=== PATIENT | female | born 1940 | race Caucasian/White ===

== ENCOUNTER 2019-04-10 09:23 | Emergency (ER) | payer MEDICARE, BC ==
[~2019-04-10] VITALS: Ht 154.9 cm; Wt 74.8 kg
[~2019-04-10 09:23] MED LIST: ACID REDUCER C1 EACH PO; ACYC200 PO; ACYC400 PO; ALLO300; ALLO300 PO; ASPI81EC; Amitiza8 MCG PO; B-121000 MC2 PO; BASAGLAR K100 UNIT/1 SC; CALCAVITDA; CLON.1 PO; CLON.2 PO; CODACE30 PO; CYAN1000 PO; Catapres0.2 MG PO; Cleocin HCl150 MG PO; Colace250 MG PO; Diflucan200 MG PO; EPIN.3I IM; ESOM20; FISH1000; FOLI400; FURO40 PO; GAVILAX17 GM PO; GLIP10ER; HYDR1TAB94 PO; Humalog Mi100 UNIT/4 SC; Humalog100 UNIT/1 SC; INSULANPEN SC; LIDO5TP TOP; LOSA25 PO; LOSARTAN POTASS25 MG PO; Lisinopril2.5 MG PO; MAGOXI400 PO; MECL25 PO; META800 PO; METF500; MULVITMINF; Mag-Al Liquid30 ML PO; NYST100000; NYST100000 MT; NYST100000 PO; NYST100SU PO; OMEP40CA12 PO; ONDA4 PO; ONDA4ODT MM; POLYETHYLENE G255 GM PO; PROM25 PO; Percocet 5-3251 EACH PO; Prilosec Otc20 MG PO; ROXICODONE5 MG PO; SACC250C PO; STOOL SOFTENER1 EAC2 PO; TOCO400; TRAM50 PO; TRIHYD253B; TRULICITY1.5 MG/0.5 SC; VERA240ER; Vitamin D2000 UNIT PO; ZOLP5 PO
[2019-04-10 10:07] LABS: BASOPHILS ABSOLUTE AUTO 0.06 K/mm3 (0.00-0.23); BASOPHILS PERCENT AUTO 1 % (0-2); EOSINOPHILS ABSOLUTE AUTO 0.29 K/mm3 (0.00-0.68); EOSINOPHILS PERCENT AUTO 3 % (0-6); IMMATURE GRAN ABSOLUTE AUTO 0.04 K/mm3 (0.00-0.10); IMMATURE GRAN PERCENT AUTO 0 % (0-1); LYMPHOCYTES ABSOLUTE AUTO 2.84 K/mm3 (0.84-5.20); LYMPHOCYTES PERCENT AUTO 30 % (21-46); MONOCYTES ABSOLUTE AUTO 0.67 K/mm3 (0.16-1.47); MONOCYTES PERCENT AUTO 7 % (4-13); Mean Corpuscular HGB 32.5 pg (26.0-34.0); Mean Corpuscular HGB Conc 33.3 g/dL (31.5-36.5); Mean Corpuscular Volume 97 fL (80-100); Mean Platelet Volume 10.6 fL (9.1-12.4); NEUTROPHILS PERCENT AUTO 59 % (41-73); Platelet Count 256 K/mm3 (150-400); RDW Coefficient Variation 12.6 % (11.7-14.2); RDW Standard Deviation 45.4 fL (35.1-46.3); Red Blood Cell Count 4.31 M/mm3 (3.80-5.20)
[2019-04-10 10:30] LABS: Alanine Aminotransfer (ALT/SGP 25 U/L (12-78); Albumin, Blood 3.5 g/dL (3.4-5.0); Albumin/Globulin Ratio 0.9 (0.8-1.8); Alk Phos 99 U/L (50-136); Anion Gap 12 mmol/L (6-16); Aspartate Aminotrans (AST/SGOT 17 U/L (12-37); Bilirubin, Total 0.8 mg/dL (0.1-1.0); Blood Urea Nitrogen 44 mg/dL (8-24); Bun/Creatinine Ratio 30.8 (12.0-20.0); CO2, Blood 23 mmol/L (21-32); Calcium, Blood 10.4 mg/dL (8.5-10.1); Chloride, Blood 100 mmol/L (98-108); Creatinine, Blood 1.43 mg/dL (0.40-1.00); Globulin, Blood 3.9 g/dL (2.2-4.0); Glomerular Filtration Rate 38 (60-); Glucose, Blood 298 mg/dL (70-99); Potassium, Blood 4.2 mmol/L (3.5-5.5); Sodium, Blood 135 mmol/L (136-145); Total Protein, Blood 7.4 g/dL (6.4-8.2)
[2019-04-10 10:32] LABS: Troponin I <0.015 ng/mL (0.000-0.040)
[2019-04-10 10:40] LABS: Source, Urine Catheter
[2019-04-10 10:53] LABS: Bilirubin, Urine Neg (Neg); Blood, Urine Neg (Neg); Glucose Qualitative, Urine 4+ (Neg); Ketones, Urine 3+ (Neg); Leukocyte Esterase, Urine Neg (Neg); Nitrite, Urine Neg (Neg); Protein, Urine 2+ (Neg); Urobilinogen, Urine NORM (Normal)
[2019-04-10 10:59] LABS: Appearance, Urine Clear (Clear); Color, Urine Yellow (P-Yellow)
[2019-04-10 11:00] LABS: Bacteria Rare /hpf; Red Blood Cells, Urine 0-2 /hpf (0-2); Squamous Epithelial Cells Few /hpf (Few); White Blood Cells, Urine 0-2 /hpf (0-5)
[2019-04-10] MEDS ORDERED: Aspir 8181 MG PO (11:17)
[2019-04-10] MEDS ORDERED: OMEP20ER PO (11:21)
== END 2019-04-10 14:56 | disposition home or self-care (01) ==
LOC: ER 09:23
PROVIDERS: Emergency Medicine
DX: E11.65 Type 2 diabetes mellitus with hyperglycemia (principal); R29.6 Repeated falls; R53.1 Weakness; R53.81 Other malaise; I10 Essential (primary) hypertension; Z88.0 Allergy status to penicillin; Z88.2 Allergy status to sulfonamides; Z88.7 Allergy status to serum and vaccine; Z88.5 Allergy status to narcotic agent; Z88.8 Allergy status to other drugs, medicaments and biological substances; Z79.899 Other long term (current) drug therapy; Z79.4 Long term (current) use of insulin; Z79.82 Long term (current) use of aspirin
CPT/HCPCS: 29505; 70450; 71046; 72125; 80053; 81001; 84484; 85025; 93005; 93010; 96360-59; 96361-59; 99285-25; J1815; J7120; P9612

== ENCOUNTER 2019-04-13 11:06 | Emergency (ER) | payer MEDICARE, BC ==
[~2019-04-13] VITALS: Ht 154.9 cm; Wt 76.2 kg
[~2019-04-13 11:06] MED LIST changes: +Aspir 8181 MG PO; +OMEP20ER PO
[2019-04-13 12:31] LABS: BASOPHILS ABSOLUTE AUTO 0.07 K/mm3 (0.00-0.23); BASOPHILS PERCENT AUTO 1 % (0-2); EOSINOPHILS ABSOLUTE AUTO 0.22 K/mm3 (0.00-0.68); EOSINOPHILS PERCENT AUTO 2 % (0-6); Hematocrit 42.4 % (33.0-51.0); Hemoglobin 14.2 g/dL (11.5-16.0); IMMATURE GRAN ABSOLUTE AUTO 0.06 K/mm3 (0.00-0.10); IMMATURE GRAN PERCENT AUTO 1 % (0-1); LYMPHOCYTES ABSOLUTE AUTO 2.24 K/mm3 (0.84-5.20); LYMPHOCYTES PERCENT AUTO 20 % (21-46); MONOCYTES ABSOLUTE AUTO 0.92 K/mm3 (0.16-1.47); MONOCYTES PERCENT AUTO 8 % (4-13); Mean Corpuscular HGB 33.6 pg (26.0-34.0); Mean Corpuscular HGB Conc 33.5 g/dL (31.5-36.5); Mean Platelet Volume 11.4 fL (9.1-12.4); NEUTROPHILS ABSOLUTE AUTO 7.67 K/mm3 (1.96-9.15); NEUTROPHILS PERCENT AUTO 69 % (41-73); Platelet Count 228 K/mm3 (150-400); RDW Coefficient Variation 13.1 % (11.7-14.2); RDW Standard Deviation 47.8 fL (35.1-46.3); Red Blood Cell Count 4.23 M/mm3 (3.80-5.20); White Blood Cell Count 11.18 K/mm3 (4.00-11.30)
[2019-04-13 12:36] LABS: Mean Corpuscular Volume 100 fL (80-100)
[2019-04-13 13:39] LABS: Albumin, Blood 3.3 g/dL (3.4-5.0); Albumin/Globulin Ratio 0.9 (0.8-1.8); Bilirubin, Total 0.7 mg/dL (0.1-1.0); Bun/Creatinine Ratio 31.5 (12.0-20.0); Calcium, Blood 10.4 mg/dL (8.5-10.1); Creatinine, Blood 1.46 mg/dL (0.40-1.00); Globulin, Blood 3.7 g/dL (2.2-4.0); Potassium, Blood 4.8 mmol/L (3.5-5.5)
[2019-04-13 14:09] LABS: Source, Urine Clean Catch
[2019-04-13 14:31] LABS: Bilirubin, Urine Neg (Neg); Blood, Urine Neg (Neg); Glucose Qualitative, Urine 4+ (Neg); Ketones, Urine 4+ (Neg); Leukocyte Esterase, Urine Neg (Neg); Nitrite, Urine Neg (Neg); Protein, Urine 1+ (Neg); Urobilinogen, Urine NORM (Normal)
[2019-04-13 14:42] LABS: Appearance, Urine Clear (Clear); Color, Urine Yellow (P-Yellow)
== END 2019-04-13 15:50 | disposition home or self-care (01) ==
LOC: ER 11:06
PROVIDERS: Emergency Medicine
DX: E11.22 Type 2 diabetes mellitus with diabetic chronic kidney disease (principal); I12.9 Hypertensive chronic kidney disease with stage 1 through stage 4 chronic kidney disease, or unspecified chronic kidney disease; E11.65 Type 2 diabetes mellitus with hyperglycemia; N18.3 Chronic kidney disease, stage 3 (moderate); R53.1 Weakness; E66.9 Obesity, unspecified; Z68.31 Body mass index [BMI] 31.0-31.9, adult; Z88.2 Allergy status to sulfonamides; Z88.8 Allergy status to other drugs, medicaments and biological substances; Z88.0 Allergy status to penicillin; Z88.5 Allergy status to narcotic agent; Z79.899 Other long term (current) drug therapy; Z79.82 Long term (current) use of aspirin; Z79.4 Long term (current) use of insulin
CPT/HCPCS: 36415; 51701; 71046; 80053; 82947; 85025; 99285-25; J1815

== ENCOUNTER 2019-04-23 16:09 | Inpatient (IN) | payer MEDICARE, BC ==
[~2019-04-23] VITALS: Ht 154.9 cm; Wt 72.6 kg
[2019-04-23 16:53] LABS: BASOPHILS ABSOLUTE AUTO 0.09 K/mm3 (0.00-0.23); BASOPHILS PERCENT AUTO 1 % (0-2); EOSINOPHILS ABSOLUTE AUTO 0.06 K/mm3 (0.00-0.68); EOSINOPHILS PERCENT AUTO 0 % (0-6); Hematocrit 45.6 % (33.0-51.0); Hemoglobin 14.7 g/dL (11.5-16.0); IMMATURE GRAN PERCENT AUTO 1 % (0-1); LYMPHOCYTES ABSOLUTE AUTO 1.89 K/mm3 (0.84-5.20); LYMPHOCYTES PERCENT AUTO 12 % (21-46); MONOCYTES ABSOLUTE AUTO 0.98 K/mm3 (0.16-1.47); MONOCYTES PERCENT AUTO 6 % (4-13); Mean Corpuscular HGB 32.2 pg (26.0-34.0); Mean Corpuscular HGB Conc 32.2 g/dL (31.5-36.5); Mean Corpuscular Volume 100 fL (80-100); NEUTROPHILS ABSOLUTE AUTO 13.29 K/mm3 (1.96-9.15); NEUTROPHILS PERCENT AUTO 81 % (41-73); RDW Coefficient Variation 12.8 % (11.7-14.2); RDW Standard Deviation 46.5 fL (35.1-46.3); Red Blood Cell Count 4.57 M/mm3 (3.80-5.20); White Blood Cell Count 16.41 K/mm3 (4.00-11.30)
[2019-04-23 16:57] LABS: International Normalized Ratio 0.99; Prothrombin Time Results 10.5 Sec (9.7-11.5)
[2019-04-23 17:10] LABS: Albumin, Blood 3.2 g/dL (3.4-5.0); Albumin/Globulin Ratio 0.9 (0.8-1.8); Bilirubin, Total 0.7 mg/dL (0.1-1.0); Bun/Creatinine Ratio 31.1 (12.0-20.0); Calcium, Blood 10.3 mg/dL (8.5-10.1); Creatinine, Blood 1.51 mg/dL (0.40-1.00); Globulin, Blood 3.7 g/dL (2.2-4.0); Potassium, Blood 4.8 mmol/L (3.5-5.5); Total Protein, Blood 6.9 g/dL (6.4-8.2)
[2019-04-23 17:17] LABS: Mean Platelet Volume 11.5 fL (9.1-12.4); Platelet Count 247 K/mm3 (150-400)
[2019-04-23 17:20] LABS: Source, Urine Catheter
[2019-04-23 17:26] LABS: Bilirubin, Urine Neg (Neg); Blood, Urine Neg (Neg); Glucose Qualitative, Urine 4+ (Neg); Ketones, Urine 3+ (Neg); Leukocyte Esterase, Urine 1+ (Neg); Nitrite, Urine Neg (Neg); Protein, Urine 2+ (Neg); Specific Gravity, Urine 1.025 (1.003-1.022); Urobilinogen, Urine NORM (Normal)
[2019-04-23 17:48] LABS: Appearance, Urine Cloudy (Clear); Color, Urine Yellow (P-Yellow)
[2019-04-23 17:51] LABS: Amorphous Heavy ({null, 0-Heavy}); Bacteria Many /hpf; Red Blood Cells, Urine Not Seen /hpf (0-2)
[2019-04-23 17:53] LABS: Squamous Epithelial Cells Rare /hpf (Few)
[2019-04-24 06:34] LABS: BASOPHILS ABSOLUTE AUTO 0.08 K/mm3 (0.00-0.23); BASOPHILS PERCENT AUTO 1 % (0-2); EOSINOPHILS ABSOLUTE AUTO 0.04 K/mm3 (0.00-0.68); EOSINOPHILS PERCENT AUTO 0 % (0-6); Hematocrit 40.3 % (33.0-51.0); Hemoglobin 13.5 g/dL (11.5-16.0); IMMATURE GRAN ABSOLUTE AUTO 0.04 K/mm3 (0.00-0.10); IMMATURE GRAN PERCENT AUTO 0 % (0-1); LYMPHOCYTES ABSOLUTE AUTO 2.32 K/mm3 (0.84-5.20); LYMPHOCYTES PERCENT AUTO 18 % (21-46); MONOCYTES ABSOLUTE AUTO 1.03 K/mm3 (0.16-1.47); MONOCYTES PERCENT AUTO 8 % (4-13); Mean Corpuscular HGB 32.7 pg (26.0-34.0); Mean Corpuscular HGB Conc 33.5 g/dL (31.5-36.5); Mean Corpuscular Volume 98 fL (80-100); Mean Platelet Volume 10.9 fL (9.1-12.4); NEUTROPHILS ABSOLUTE AUTO 9.12 K/mm3 (1.96-9.15); NEUTROPHILS PERCENT AUTO 72 % (41-73); Platelet Count 263 K/mm3 (150-400); RDW Coefficient Variation 12.6 % (11.7-14.2); RDW Standard Deviation 45.2 fL (35.1-46.3); Red Blood Cell Count 4.13 M/mm3 (3.80-5.20); White Blood Cell Count 12.63 K/mm3 (4.00-11.30)
[2019-04-24 06:59] LABS: Anion Gap 8 mmol/L (6-16); Blood Urea Nitrogen 45 mg/dL (8-24); Bun/Creatinine Ratio 31.7 (12.0-20.0); CHOL/HDL RATIO 4.4; CO2, Blood 26 mmol/L (21-32); Calcium, Blood 10.2 mg/dL (8.5-10.1); Chloride, Blood 109 mmol/L (98-108); Cholesterol 201 mg/dL (50-200); Creatinine, Blood 1.42 mg/dL (0.40-1.00); Glomerular Filtration Rate 38 (60-); Glucose, Blood 225 mg/dL (70-99); HDL Cholesterol 46 mg/dL (>39); LDL/HDL RATIO 2.9; Low Density Lipoprotein Chol 132 mg/dL (0-110); Potassium, Blood 3.7 mmol/L (3.5-5.5); Sodium, Blood 143 mmol/L (136-145); Triglycerides 116 mg/dL (30-160); Very Low Density Lipoprot Chol 23 mg/dL (6-32)
--- NOTE | 2019-04-24 12:13 | NUR ---
echocardiogram completed
--- NOTE | 2019-04-24 17:50 | NUR ---
PT ARRIVED TO THE UNIT VIA GURNEY WITH AT BEDSIDE. PT EXPRESSED FEELING VERY WEAK COMPARED TO HER BASELINE. PT IS EXPERIENCING DIFFICULTY MOVING AND SLOWED SPEECH. PT IS INTERMITTENTLY CONFUSED. PT TO IMAGING FOR MRI. SPEECH THERAPY EVALUATED. PT IS ON PUREE DIET AND HONEY THICK LIQUID. OT WORKED WITH PT AND REPORTED THAT PT HAD A VERY DIFFICULT TIME SITTING AT THE EDGE OF THE BED.
--- NOTE | 2019-04-25 00:34 | NUR ---
BRADYCARDIA CALL FROM PCU SWITCHBOARD OPERATOR SUPERVISOR ELISHA GEORGES AT 0 THAT PT HR WENT FROM THE HIGH 50'S TO UPPER 40'S. PT HR WAS 48. PT REMAINED BRADYCARDIC BETWEEN [phone] WENT INTO THE ROOM TO CHECK ON PT AND SHE WAS RESTING IN BED WITH HER EYES CLOSED AND APPEARED TO BE SLEEPING. SHE RESPONDED TO ME WHEN I CALLED HER NAME. A/OX3 AND ASYMPTOMATIC. VITALS OBTAINED AND WERE STABLE. NEURO CHECK PERFORMED WITH NO ACUTE CHANGES. 0031 PT HR BACK UP TO 56. SUPERVISOR BOILER REPAIR MADE AWARE. WILL CONTINUE TO MONITOR.
--- NOTE | 2019-04-25 04:34 | NUR ---
SHIFT SUMMARY PT HAS RESTED T/O SHIFT. SHE DENIES PAIN, SHE IS A/OX4. WEAKNESS, USES BED MERCADO, AND IS CONTINENT. SWALLOWING PRECAUTIONS MAINTAIED. SHE TOLERATED THICKED LIQUIDS AND PILLS CRUSHED IN APPLESAUCE. UNEVENTFUL NIGHT. BED IN LOWEST POSITION, CALL LIGHT WITHIN REACH. WILL CONTINUE TO MONITOR AND REPORT TO ONCOMING RN.
[2019-04-25 05:35] LABS: BASOPHILS ABSOLUTE AUTO 0.06 K/mm3 (0.00-0.23); BASOPHILS PERCENT AUTO 1 % (0-2); EOSINOPHILS ABSOLUTE AUTO 0.18 K/mm3 (0.00-0.68); EOSINOPHILS PERCENT AUTO 2 % (0-6); Hematocrit 38.3 % (33.0-51.0); Hemoglobin 12.5 g/dL (11.5-16.0); IMMATURE GRAN ABSOLUTE AUTO 0.03 K/mm3 (0.00-0.10); IMMATURE GRAN PERCENT AUTO 0 % (0-1); LYMPHOCYTES ABSOLUTE AUTO 2.16 K/mm3 (0.84-5.20); LYMPHOCYTES PERCENT AUTO 27 % (21-46); MONOCYTES ABSOLUTE AUTO 0.84 K/mm3 (0.16-1.47); MONOCYTES PERCENT AUTO 10 % (4-13); Mean Corpuscular HGB 31.7 pg (26.0-34.0); Mean Corpuscular HGB Conc 32.6 g/dL (31.5-36.5); Mean Corpuscular Volume 97 fL (80-100); Mean Platelet Volume 10.7 fL (9.1-12.4); NEUTROPHILS ABSOLUTE AUTO 4.84 K/mm3 (1.96-9.15); NEUTROPHILS PERCENT AUTO 60 % (41-73); Platelet Count 243 K/mm3 (150-400); RDW Coefficient Variation 12.9 % (11.7-14.2); Red Blood Cell Count 3.94 M/mm3 (3.80-5.20); White Blood Cell Count 8.11 K/mm3 (4.00-11.30)
[2019-04-25 06:06] LABS: Albumin, Blood 2.9 g/dL (3.4-5.0); Anion Gap 7 mmol/L (6-16); Blood Urea Nitrogen 42 mg/dL (8-24); Bun/Creatinine Ratio 33.9 (12.0-20.0); CO2, Blood 27 mmol/L (21-32); Calcium, Blood 10.1 mg/dL (8.5-10.1); Chloride, Blood 109 mmol/L (98-108); Creatinine, Blood 1.24 mg/dL (0.40-1.00); Glomerular Filtration Rate 45 (60-); Glucose, Blood 125 mg/dL (70-99); Phosphorus, Blood 1.6 mg/dL (2.5-4.9); Potassium, Blood 3.5 mmol/L (3.5-5.5); Sodium, Blood 143 mmol/L (136-145)
--- NOTE | 2019-04-25 09:15 | NUR ---
PT REQUESTED TO ATTEMPT TO TAKE PILLS WHOLE IN [place]. PT WAS ABLE TO SWALLOW PILLS WHOLE WITHOUT ANY DIFFICULTY.
[2019-04-25] MEDS ORDERED: TYLENOL W CODEINE PO (10:30)
--- NOTE | 2019-04-25 12:58 | NUR ---
PT IS VERY SLEEPY THIS AFTERNOON. SHE STATED THAT SHE DID NOT SLEEP WELL. SHE IS SLOW TO RESPOND. SHE EXPRESSED THAT HER CHEECK WAS BOTHERING HER AND ASKED FOR SOME TYLENOL. PT PROMPTLY FELL ASLEEP, HELD MEDICATION. WHEN LUNCH ARRIVED PT STATED THAT SHE WAS NOT HUNGRY AND KEPT DRIFTING BACK TO SLEEP, HELD AFTERNOON MEDICATIONS AND UPDATED DR. NOTED TO HAVE INCREASED RIGHT SIDED WEAKNESS AND DISCUSSED WITH DR. MARTINEZ. NO NEW ORDERS AT THIS TIME, WILL CONTINUE TO MONITOR.
--- NOTE | 2019-04-25 16:57 | NUR ---
PT SLEEPING FREQUENTLY THIS SHIFT. SHE STATED THAT SHE DID NOT SLEEP WELL LAST NIGHT. PT HAS LITTLE APPETITE AND DID NOT DRINK MUCH THIS SHIFT, A FEW SIPS OF THICKEND ORANGE JUICE. PT STATED THAT SHE HAS A HISTORY OF TMJ AND HER JAW HAS BEEN HURTING A LOT TODAY. PROVIDED TYLENOL PER MAR AND APPLIED HEAT. PT'S AT BEDSIDE MOST OF THIS SHIFT.
--- NOTE | 2019-04-26 05:00 | NUR ---
SHIFT SUMMARY PT CONTINUES TO HAVE RIGHT SIDED WEAKNESS. PT HAS POOR APPETITE AND HAS BEEN EATING VERY LITTLE. DR. MARTINEZ WAS NOTIFIED OF THIS BY DAYSHIFT RN. GUILLE HELD FOR THIS REASON. PT LETHARGIC, BUT EASILY AWAKES TO VERAL STIMULI. NEURO CHECKS HAVE REMAINED UNCHANGED FROM PRIOR ASSESSMENTS. PT BRADYCARDIC AT NIGHT WHEN SLEEPING 48-52 PER RAG CUTTING MACHINE OPERATOR. PT HAS BEEN ASYMPTOMATIC AND VITALS STABLE. PT IS NSR DURING THE DAY AND WITH ACTIVTY. PT A/OX4, CALLS APPROPRIATELY AND MAKES NEEDS KNOWN. WILL CONTINUE TO MONITOR AND REPORT TO ONCOMING RN.
--- NOTE | 2019-04-26 07:22 | NUR ---
ASSUMED CARE OF PT- BEDSIDE REPORT COMPLETED WITH NIGHT AMILCAR RIVERA. PT ALERT AND ORIENTED TO SELF, EVENT AND SURROUNDINGS. PT CURRENTLY SITTING UP IN BED. SPEECH IS SLURRED WITH A NOTABLE LEFT SIDED DROOP. PER PT SPEECH IS MUCH BETTER THAN IT WAS WHEN SHE WAS FIRST ADMITTED. PT HAS BEEN SEEN BY THERAPY BUT THEY WERE UNABLE TO GET HER OUT OF BED YET, PT TO BE SEEN AGAIN TODAY WITH ATTEMPT TO AMBULATE.
--- NOTE | 2019-04-26 07:43 | NUR ---
PT WAS SEEN BY [facility]UP[facility]ERAPY WHERE SHE SAT AT THE EOB. RECIEVED A CALL FROM TELE THAT THE PT HR HAD GONE FROM NSR IN THE 50'S TO NSR IN THE 100'S. ASSISTED PT BACK TO BED LAYING FLAT AND HR RETURNED TO NSR AT 62 WITH PVC'S.
--- NOTE | 2019-04-26 11:25 | NUR ---
CALLED DR PORTER RENE IS AWARE OF THE PT INCREASED HR WITH WORKING WITH OT TODAY. PT STILL OK FOR DISCHARGE.
[2019-04-26] MEDS ORDERED: ATOR40TA PO (11:46)
[2019-04-26] MEDS ORDERED: ASPI81CH PO (11:46)
[2019-04-26] MEDS ORDERED: CLOP75 PO (11:46)
[2019-04-26] MEDS ORDERED: LEVOFLOXACIN750 MG PO (11:47)
--- NOTE | 2019-04-26 11:52 | NUR ---
SPOKE TO DISCHARGE PLANNING PLAN IS FOR PT TO DISCHARGE TO [facility] AT 1230.
--- NOTE | 2019-04-26 14:47 | NUR ---
DISCHARGE NOTE- PT WAS DISCHARGED TO [facility] SPOKE TO STAFF AND GAVE VERBAL REPORT. NO FURTHER QUESTIONS AT THAT TIME, IV DC'D PRIOR TO DISCHARGE, TELE DC'D PRIOR TO DISCHARGE AND SENT BACK TO PCU VIA THE TUBE SYSTEM.
== END 2019-04-26 12:44 | DRG 65 ==
LOC: ER 16:09 → ERHOLD 21:13 → MEDS 04-24 12:19 → ENPENDDIS 04-26 11:45 → MEDS 04-26 12:44
PROVIDERS: Emergency Medicine; Family Medicine; ADMIT Internal Medicine
DX: I63.9 Cerebral infarction, unspecified (principal); N39.0 Urinary tract infection, site not specified; I12.9 Hypertensive chronic kidney disease with stage 1 through stage 4 chronic kidney disease, or unspecified chronic kidney disease; N18.3 Chronic kidney disease, stage 3 (moderate); E11.22 Type 2 diabetes mellitus with diabetic chronic kidney disease; M79.7 Fibromyalgia; Z88.6 Allergy status to analgesic agent; Z88.5 Allergy status to narcotic agent; Z88.0 Allergy status to penicillin; Z88.2 Allergy status to sulfonamides; Z88.7 Allergy status to serum and vaccine; Z88.8 Allergy status to other drugs, medicaments and biological substances; Z79.4 Long term (current) use of insulin; Z79.899 Other long term (current) drug therapy
CPT/HCPCS: 36415; 51701; 70450; 70496; 70498; 70551; 80048; 80053; 80061; 80069; 81001; 82947; 83036; 85025; 85610; 87086; 92610; 93005; 93010; 93306; 96360-59; 96361-59; 97162; 97166; 97530; 97535; 99285-25; A9270; J1650; J1815; J1956; J7030; Q9967

== ENCOUNTER 2019-07-20 14:16 | Emergency (ER) | payer MEDICARE, BC ==
[~2019-07-20] VITALS: Ht 154.9 cm; Wt 74.8 kg
[~2019-07-20 14:16] MED LIST changes: +ASPI81CH PO; +ATOR40TA PO; +CLOP75 PO; +LEVOFLOXACIN750 MG PO; +TYLENOL W CODEINE PO
[2019-07-20 14:57] LABS: BASOPHILS ABSOLUTE AUTO 0.06 K/mm3 (0.00-0.23); BASOPHILS PERCENT AUTO 1 % (0-2); EOSINOPHILS ABSOLUTE AUTO 0.18 K/mm3 (0.00-0.68); EOSINOPHILS PERCENT AUTO 2 % (0-6); Hemoglobin 13.1 g/dL (11.5-16.0); IMMATURE GRAN ABSOLUTE AUTO 0.06 K/mm3 (0.00-0.10); IMMATURE GRAN PERCENT AUTO 1 % (0-1); LYMPHOCYTES ABSOLUTE AUTO 1.85 K/mm3 (0.84-5.20); LYMPHOCYTES PERCENT AUTO 15 % (21-46); MONOCYTES ABSOLUTE AUTO 0.68 K/mm3 (0.16-1.47); MONOCYTES PERCENT AUTO 6 % (4-13); Mean Corpuscular HGB 32.6 pg (26.0-34.0); Mean Corpuscular HGB Conc 33.6 g/dL (31.5-36.5); Mean Corpuscular Volume 97 fL (80-100); NEUTROPHILS ABSOLUTE AUTO 9.39 K/mm3 (1.96-9.15); NEUTROPHILS PERCENT AUTO 77 % (41-73); Platelet Count 283 K/mm3 (150-400); RDW Coefficient Variation 12.6 % (11.7-14.2); RDW Standard Deviation 44.9 fL (35.1-46.3); Red Blood Cell Count 4.02 M/mm3 (3.80-5.20); White Blood Cell Count 12.22 K/mm3 (4.00-11.30)
[2019-07-20 15:23] LABS: Albumin, Blood 3.3 g/dL (3.4-5.0); Albumin/Globulin Ratio 0.8 (0.8-1.8); Bilirubin, Total 0.7 mg/dL (0.1-1.0); Bun/Creatinine Ratio 32.7 (12.0-20.0); Calcium, Blood 10.3 mg/dL (8.5-10.1); Creatinine, Blood 1.56 mg/dL (0.40-1.00); Globulin, Blood 4.2 g/dL (2.2-4.0); Potassium, Blood 3.8 mmol/L (3.5-5.5); Total Protein, Blood 7.5 g/dL (6.4-8.2)
[2019-07-20 16:33] LABS: Source, Urine Catheter
[2019-07-20 16:44] LABS: Bilirubin, Urine Neg (Neg); Blood, Urine 1+ (Neg); Glucose Qualitative, Urine 4+ (Neg); Ketones, Urine Neg (Neg); Leukocyte Esterase, Urine 3+ (Neg); Nitrite, Urine Pos (Neg); Protein, Urine 2+ (Neg); Specific Gravity, Urine 1.015 (1.003-1.022); Urobilinogen, Urine NORM (Normal)
[2019-07-20 16:56] LABS: Appearance, Urine Hazy (Clear); Color, Urine Yellow (P-Yellow)
[2019-07-20 16:58] LABS: Bacteria Many /hpf; Red Blood Cells, Urine Rare /hpf (0-2); Squamous Epithelial Cells Rare /hpf (Few)
[2019-07-20] MEDS ORDERED: NYST100000 SS (17:05)
[2019-07-20] MEDS ORDERED: CEPH500 PO (17:05)
== END 2019-07-20 19:01 | disposition home or self-care (01) ==
LOC: ER 14:16
PROVIDERS: Emergency Medicine
DX: E11.65 Type 2 diabetes mellitus with hyperglycemia (principal); N39.0 Urinary tract infection, site not specified; B37.0 Candidal stomatitis; I12.9 Hypertensive chronic kidney disease with stage 1 through stage 4 chronic kidney disease, or unspecified chronic kidney disease; E11.22 Type 2 diabetes mellitus with diabetic chronic kidney disease; N18.9 Chronic kidney disease, unspecified; Z88.8 Allergy status to other drugs, medicaments and biological substances; Z88.0 Allergy status to penicillin; Z88.2 Allergy status to sulfonamides; Z88.7 Allergy status to serum and vaccine; Z88.5 Allergy status to narcotic agent; Z79.899 Other long term (current) drug therapy; Z79.4 Long term (current) use of insulin; Z79.82 Long term (current) use of aspirin; Z79.01 Long term (current) use of anticoagulants
CPT/HCPCS: 36415; 51701; 80053; 81001; 82947; 85025; 87086; 96361-59; 96365-59; 96375-59; 99285-25; J0696; J2405; J3010; J7030

== ENCOUNTER → 2019-07-27 | Outpatient (CLI) | payer MEDICARE, BC ==
[~2019-07-27] MED LIST changes: +CEPH500 PO; +NYST100000 SS
[2019-07-27 14:33] LABS: BASOPHILS ABSOLUTE AUTO 0.09 K/mm3 (0.00-0.23); BASOPHILS PERCENT AUTO 1 % (0-2); EOSINOPHILS ABSOLUTE AUTO 0.16 K/mm3 (0.00-0.68); EOSINOPHILS PERCENT AUTO 2 % (0-6); Hematocrit 35.4 % (33.0-51.0); Hemoglobin 11.8 g/dL (11.5-16.0); IMMATURE GRAN ABSOLUTE AUTO 0.05 K/mm3 (0.00-0.10); IMMATURE GRAN PERCENT AUTO 1 % (0-1); LYMPHOCYTES ABSOLUTE AUTO 1.71 K/mm3 (0.84-5.20); LYMPHOCYTES PERCENT AUTO 19 % (21-46); MONOCYTES ABSOLUTE AUTO 0.56 K/mm3 (0.16-1.47); MONOCYTES PERCENT AUTO 6 % (4-13); Mean Corpuscular HGB 31.9 pg (26.0-34.0); Mean Corpuscular HGB Conc 33.3 g/dL (31.5-36.5); Mean Corpuscular Volume 96 fL (80-100); Mean Platelet Volume 11.3 fL (9.1-12.4); NEUTROPHILS ABSOLUTE AUTO 6.36 K/mm3 (1.96-9.15); NEUTROPHILS PERCENT AUTO 71 % (41-73); Platelet Count 263 K/mm3 (150-400); RDW Coefficient Variation 12.9 % (11.7-14.2); RDW Standard Deviation 44.7 fL (35.1-46.3); White Blood Cell Count 8.93 K/mm3 (4.00-11.30)
[2019-07-27 14:53] LABS: Albumin, Blood 2.9 g/dL (3.4-5.0); Albumin/Globulin Ratio 0.8 (0.8-1.8); Bilirubin, Total 0.6 mg/dL (0.1-1.0); Bun/Creatinine Ratio 20.6 (12.0-20.0); Calcium, Blood 9.5 mg/dL (8.5-10.1); Creatinine, Blood 1.41 mg/dL (0.40-1.00); Globulin, Blood 3.6 g/dL (2.2-4.0); Potassium, Blood 3.7 mmol/L (3.5-5.5); Total Protein, Blood 6.5 g/dL (6.4-8.2)
== END | disposition home or self-care (01) ==
LOC: LAB 14:01 → LAB SHORT 14:01 → EDSTATUS 07-19 11:10 → LAB FUT 07-19 11:10
PROVIDERS: Internal Medicine
DX: R19.7 Diarrhea, unspecified (principal)
CPT/HCPCS: 80053; 85025

== ENCOUNTER → 2019-09-29 | Outpatient (CLI) | payer MEDICARE, BC ==
[2019-09-30 17:57] LABS: Campylobacter Sp Not Detected (NOT DETECT)
[2019-09-30 17:58] LABS: Adenovirus F 40/41 Not Detected (NOT DETECT); Astrovirus Not Detected (NOT DETECT); Cryptosporidium Not Detected (NOT DETECT); Cyclospora Cayetanensis Not Detected (NOT DETECT); E. Coli O157 Not Detected (NOT DETECT); Entamoeba Histolytica Not Detected (NOT DETECT); Enteroaggregative E. coli-EAEC Not Detected (NOT DETECT); Enteropathogenic E. coli-EPEC Not Detected (NOT DETECT); Enterotoxigenic E. coli-ETEC Not Detected (NOT DETECT); Giardia Lamblia Not Detected (NOT DETECT); Norovirus GI/GII Not Detected (NOT DETECT); Plesiomonas Shigelloides Not Detected (NOT DETECT); Rotavirus A Not Detected (NOT DETECT); Salmonella Sp Not Detected (NOT DETECT); Sapovirus Not Detected (NOT DETECT); Shiga Toxin-prod E. coli-STEC Not Detected (NOT DETECT); Shigella/Enteroin E. coli-EIEC Not Detected (NOT DETECT); Vibrio Cholerae Not Detected (NOT DETECT); Vibrio Sp Not Detected (NOT DETECT); Yersinia Enterocolitica Not Detected (NOT DETECT)
== END ==
LOC: LAB 15:43 → LAB SHORT 15:43
PROVIDERS: Internal Medicine Gastroenterology
DX: R19.7 Diarrhea, unspecified (principal)
CPT/HCPCS: 0097U

== ENCOUNTER 2019-10-01 11:07 | Day surgery (SDC) | payer MEDICARE, BC ==
[~2019-10-01] VITALS: Ht 154.9 cm; Wt 74.0 kg
== END 2019-10-01 13:55 | disposition home or self-care (01) ==
LOC: ORSCSDS 11:07
PROVIDERS: Internal Medicine Gastroenterology
PROC: 0D758ZZ Dilation of Esophagus, Via Natural or Artificial Opening Endoscopic (ICD-10-PCS; principal; 2019-10-01 13:00)
DX: R13.14 Dysphagia, pharyngoesophageal phase (principal); R11.2 Nausea with vomiting, unspecified; G47.33 Obstructive sleep apnea (adult) (pediatric); I69.959 Hemiplegia and hemiparesis following unspecified cerebrovascular disease affecting unspecified side; N18.3 Chronic kidney disease, stage 3 (moderate); I10 Essential (primary) hypertension; E78.5 Hyperlipidemia, unspecified; E11.9 Type 2 diabetes mellitus without complications; Z79.4 Long term (current) use of insulin; Z79.899 Other long term (current) drug therapy; Z79.01 Long term (current) use of anticoagulants
CPT/HCPCS: 82947; J2704; J7120

== ENCOUNTER 2020-05-10 12:08 | Emergency (ER) | payer MEDICARE, BC, OTHER ==
[~2020-05-10] VITALS: Ht 154.9 cm; Wt 73.0 kg
[2020-05-10 12:59] LABS: BASOPHILS ABSOLUTE AUTO 0.05 K/mm3 (0.00-0.23); BASOPHILS PERCENT AUTO 1 % (0-2); EOSINOPHILS PERCENT AUTO 3 % (0-6); Hematocrit 33.4 % (33.0-51.0); Hemoglobin 11.2 g/dL (11.5-16.0); IMMATURE GRAN ABSOLUTE AUTO 0.02 K/mm3 (0.00-0.10); IMMATURE GRAN PERCENT AUTO 0 % (0-1); LYMPHOCYTES ABSOLUTE AUTO 2.46 K/mm3 (0.84-5.20); LYMPHOCYTES PERCENT AUTO 31 % (21-46); MONOCYTES ABSOLUTE AUTO 0.63 K/mm3 (0.16-1.47); MONOCYTES PERCENT AUTO 8 % (4-13); Mean Corpuscular HGB 32.4 pg (26.0-34.0); Mean Corpuscular HGB Conc 33.5 g/dL (31.5-36.5); Mean Corpuscular Volume 97 fL (80-100); NEUTROPHILS ABSOLUTE AUTO 4.57 K/mm3 (1.96-9.15); NEUTROPHILS PERCENT AUTO 58 % (41-73); Platelet Count 211 K/mm3 (150-400); RDW Coefficient Variation 13.2 % (11.7-14.2); RDW Standard Deviation 46.6 fL (35.1-46.3); Red Blood Cell Count 3.46 M/mm3 (3.80-5.20); White Blood Cell Count 7.93 K/mm3 (4.00-11.30)
[2020-05-10 13:25] LABS: Albumin, Blood 3.4 g/dL (3.4-5.0); Albumin/Globulin Ratio 1.1 (0.8-1.8); Bilirubin, Total 0.5 mg/dL (0.1-1.0); Bun/Creatinine Ratio 22.8 (12.0-20.0); Calcium, Blood 10.3 mg/dL (8.5-10.1); Creatinine, Blood 1.62 mg/dL (0.40-1.00); Globulin, Blood 3.2 g/dL (2.2-4.0); Potassium, Blood 3.6 mmol/L (3.5-5.5); Total Protein, Blood 6.6 g/dL (6.4-8.2)
[2020-05-10 14:09] LABS: Source, Urine Catheter
[2020-05-10 14:20] LABS: Bilirubin, Urine Neg (Neg); Blood, Urine Neg (Neg); Glucose Qualitative, Urine Neg (Neg); Ketones, Urine 2+ (Neg); Leukocyte Esterase, Urine 1+ (Neg); Nitrite, Urine Neg (Neg); Protein, Urine 1+ (Neg); Specific Gravity, Urine 1.015 (1.003-1.022); Urobilinogen, Urine NORM (Normal)
[2020-05-10 14:31] LABS: Appearance, Urine Hazy (Clear); Color, Urine Yellow (P-Yellow)
[2020-05-10 14:32] LABS: Amorphous Light (0-Heavy); Red Blood Cells, Urine 0-2 /hpf (0-2)
[2020-05-10 14:33] LABS: Bacteria Few /hpf; Squamous Epithelial Cells Few /hpf (Few)
[2020-05-10] MEDS ORDERED: ONDA4 PO (15:22)
== END 2020-05-10 15:57 | disposition home or self-care (01) ==
LOC: ER 12:08
PROVIDERS: Emergency Medicine
DX: R11.2 Nausea with vomiting, unspecified (principal); E11.9 Type 2 diabetes mellitus without complications; I12.9 Hypertensive chronic kidney disease with stage 1 through stage 4 chronic kidney disease, or unspecified chronic kidney disease; N18.30 Chronic kidney disease, stage 3 unspecified
CPT/HCPCS: 74022; 80053; 81001; 83690; 84484; 85025; 87086; 93005; 93010; 96374; 99284-25; A9270-GY; J2405; J7030